=== PATIENT | female | born 1985 | race Caucasian/White ===

== ENCOUNTER 2017-01-24 07:21 | Inpatient (IN) | payer OTHER ==
[2017-01-24 07:45] VITALS: BMI 25.4
--- NOTE | 2017-01-24 08:54 | OBHP ---
Datetime: 01/24/2017 08:30 IP Adm Impression: Term, intrauterine ; No Active Labor; Intact Membranes IP Admit Plan: Admit to unit; Initiate labor induction protocol Admit Comment, IP Provider: 29 G1 P 0 IUP at 398w pt Dr Shahid with decreased FM since last night. No SROM; no VB; occ CTX PNC: dr Shahid - chart rev'd - followed for early IUGR Meds Heparin PMH: PSH denies NKA PSoH denies smoking ETOH drugs A: IUP at 39w (EDC Sep16) Oligohydramnios Rubella Non Immune PLAN: condition explained to pt and her . Their questions answered Spoke to Dr Shahid...Cerivdil ordered Pelvic Type - PN: Adequate Extremities - PN: Normal Abdomen - PN: Normal Back - PN: Normal Breast - PN: Not Done Lungs - PN: Normal Heart - PN: Normal Thyroid - PN: Normal Neurologic - PN: Normal HEENT - PN: Normal General - PN: Normal Presentation-Admit: Vertex IP Fetus A Comments: [place] NAGI 4.5cm FHR - Baseline A Provider: 120 Membranes, Provider: Intact Comments, ACOG Physical Exam: ROS Geneeral: no weakness HEENT: NO BASS; no visual dist RESP: no SOB; no Cough CV: no CP; no palpitations GI: No N/V/D : No F/U/ D MS: no joint pain Pool Provider: Negative IP Hx Assessment: The History has been Reviewed and is Current IP Chief Complaint: Decreased movement NICHD Variability Prov Fetus A: Moderate 6-25bpm NICHD Accel Fetus A IP Provider: 15X15 FHR Category Provider Fetus A: Category I NICHD Decel Fetus A IP Provider: None Genitourinary Exam: Normal DTRs - PN: Normal
[2017-01-24 09:17] LABS: BASO # 0.1 K/uL (0.0-0.2); BASO % 0.7 % (0.0-2.0); EOS # 0.1 K/uL (0.0-0.7); EOS % 1.4 % (0.0-4.0); HEMATOCRIT 39.5 % (34.0-47.0); LYMPH # 1.6 K/uL (1.0-4.3); MEAN CELL VOLUME 89.1 fl (81.0-99.0); MEAN CORPUSCULAR HEMOGLOBIN 29.5 pg (27.0-31.0); MEAN CORPUSCULAR HGB CONC 33.1 g/dL (33.0-37.0); MEAN PLATELET VOLUME 9.1 fl (7.2-11.7); MONO # 0.5 K/uL (0.0-0.8); MONO % 5.6 % (0.0-10.0); NEUT % 75.3 % (50.0-75.0); RED CELL DISTRIBUTION WIDTH 14.9 % (11.5-14.5); WHITE BLOOD COUNT 9.3 K/uL (4.8-10.8)
[2017-01-24] MEDS: Lactated Ringer's 1,000 ML IV SCH ×4 (09:39→15:25)
--- NOTE | 2017-01-24 09:40 | OBADHP ---
Datetime: 01/24/2017 08:30 IP Chief Complaint Other: IUGR Admit Comment, IP Provider: 29 G1 P 0 IUP at 398w pt Dr Shahid with decreased FM since last night. No SROM; no VB; occ CTX PNC: dr Shahid - chart rev'd - followed for early IUGR Meds Heparin PMH: PSH denies NKA PSoH denies smoking ETOH drugs A: IUP at 39w (EDC Sep16) Oligohydramnios Rubella Non Immune PLAN: condition explained to pt and her . Their questions answered Spoke to Dr Shahid...Cerivdil ordered Pelvic Type - PN: Adequate Extremities - PN: Normal Abdomen - PN: Normal Back - PN: Normal Breast - PN: Not Done Lungs - PN: Normal Heart - PN: Normal Thyroid - PN: Normal Neurologic - PN: Normal HEENT - PN: Normal General - PN: Normal Presentation-Admit: Vertex IP Fetus A Comments: [place] NAGI 4.5cm FHR - Baseline A Provider: 120 Membranes, Provider: Intact Contraction Comments Provider: irregular Comments, ACOG Physical Exam: ROS Geneeral: no weakness HEENT: NO BASS; no visual dist RESP: no SOB; no Cough CV: no CP; no palpitations GI: No N/V/D : No F/U/ D MS: no joint pain Gestation - Est Wks by US: 39+ Pool Provider: Negative IP Hx Assessment: The History has been Reviewed and is Current Vital Signs Provider: Reviewed IP Chief Complaint: Uterine contractions; Decreased movement NICHD Variability Prov Fetus A: Moderate 6-25bpm NICHD Accel Fetus A IP Provider: 15X15 FHR Category Provider Fetus A: Category I NICHD Decel Fetus A IP Provider: None Dilatation, Provider: 1cm Effacement, Provider: 50 Genitourinary Exam: Normal DTRs - PN: Normal EGA AdmitDate IP: 39.3 IP Adm Impression: Term, intrauterine ; Intact Membranes IP Admit Plan: Admit to unit; Initiate labor protocol
[2017-01-24] MEDS ORDERED: Fentanyl/Bupivacaine HCl 250 ML EPI ONE (13:39)
[2017-01-24] MEDS ORDERED: Bupivacaine HCl 0.25% PF (10 ml) Inj ONE ×2 (13:40→20:27)
[2017-01-24] MEDS ORDERED: Oxytocin 30 units/LR 500ML 30 U/500 ML BAG IV ONE (23:34)
[2017-01-24] MEDS ORDERED: Lidocaine 1% Inj (20ml) ONE (23:35)
--- NOTE | 2017-01-25 04:42 | OBDS ---
DELIVERY PERSONNEL Delivery Doctor: Lexy Shahid MD Wrapper And Preserver: Dennis Hickman RN Anesthesiologist: Helen Merchant MD MATERNAL INFORMATION Delivery Anesthesia: Local; Epidural Medications in Delivery: oxytocin Estimated Blood Loss (ml): 250 Placenta Cultured: No Maternal Complications: None Provider Comments: Delivered a living baby girl appears term cried spontaneously, vacum used x1 try for maternal exaustion 9/9; AF clear, placenta complete and intact Episiotomy repaired as above . Tolerated procedure well, no complication. Uterus contracted well Rectal done no defects LABOR SUMMARY EDC: 01/28/2017 00:00 No. Babies in Womb: 1 Attempted: No Labor Anesthesia: Epidural LABOR INFORMATION Reason for Induction: Not Applicable Onset of Labor: 01/24/2017 15:00 Complete Dilatation: 01/24/2017 23:15 Cervical Ripening Agents: Cervidil (Annotations: Cervidil 1omg intravaginally inserted by Dr Shahid ) Oxytocin: N/A Group B Beta Strep: Negative Steroids Given: None Reason Steroids Not Administered: Not Applicable MEMBRANES Membranes Rupture Method: Spontaneous Rupture of Membranes: 01/24/2017 20:40 Length of Rupture (hrs): 7.37 Amniotic Fluid Color: Clear Amniotic Fluid Amount: Moderate STAGES OF LABOR Stage 1 hrs: 8 Stage 1 min: 15 Stage 2 hrs: 4 Stage 2 min: 47 Stage 3 hrs: 0 Stage 3 min: 4 Total Time in Labor hrs: 13 Total Time in Labor min: 6 VAGINAL DELIVERY Episiotomy: Median Laceration Extension: Second Degree Laceration Type: Perineal Other Laceration: vaginal tear- repaired Laceration Repair: Yes Laceration Repair Note: episiotomy repaired with 2-0 chromic interrupted and continously without any complication. Initial Vag Sponge Count: 5 Final Vag Sponge Count: 5 Initial Vag Sharps Count: 2 Final Vag Sharps Count: 2 Sponge Count Correct: Yes Sharps Count Correct: Yes Count Comment: yes CSECTION DELIVERY Primary Indication: N/A Secondary Indication: N/A CSection Incision: N/A Uterine Closure: N/A BABY A INFORMATION Infant Delivery Date/Time: 01/25/2017 04:02 Method of Delivery: Vaginal Born in Route : No : N/A Forceps: N/A Vacuum Extraction: Successful Shoulder Dystocia : No ASSISTED DELIVERY BABY A Indication for Assisted Delivery: maternal exhaustion Catheter Prior to Procedure: Yes Vacuum Number of Pulls: 1 Vacuum Number of PopOffs: 0 Vacuum Oracle Erp Developer: Kiwi SHOULDER DYSTOCIA BABY A Infant Delivery Date/Time: 01/25/2017 04:02 PRESENTATION/POSITION BABY A Presentation: Cephalic Cephalic Presentation: Vertex Breech Presentation: N/A PLACENTA INFORMATION BABY A Placenta Delivery Time : 01/25/2017 04:06 Placenta Method of Delivery: Spontaneous Placenta Status: Delivered SCORES BABY A Heart Rate 1 min: >100 bpm Resp Effort 1 min: Good Cry Reflex Irritability 1 min: Cough or Sneeze or Pulls Away Muscle Tone 1 min: Active Motion Color 1 min: Body [place], Extremities Blue SCORE 1 MIN: 9 Heart Rate 5 min: >100 bpm Resp Effort 5 min: Good Cry Reflex Irritability 5 min: Cough or Sneeze or Pulls Away Muscle Tone 5 min: Active Motion Color 5 min: Body [place], Extremities Blue SCORE 5 MIN: 9 INFANT INFORMATION BABY A Gestational Age at Delivery: 39.4 Gestational Status: Term Infant Outcome : Liveborn Condition : Stable Infant Sex: Female IDENTIFICATION/MEDS BABY A ID Band Number: [id number] ID Band Location: Left Leg; Left Arm WEIGHT/LENGTH BABY A Infant Birthweight (gms): 3350 Infant Weight (lb): 7 Infant Weight (oz): 6 CORD INFORMATION BABY A No. Cord Vessels: 3 Nuchal Cord : N/A Cord Blood Taken: Yes Suction: Mouth; Nose
[2017-01-25] MEDS ORDERED: Oxycodone/Acetaminophen 5/325 mg Tab PO PRN ×2 (04:44→06:16)
[2017-01-25] MEDS ORDERED: Benzocaine/Menthol SPRAY TOP PRN (15:59)
[2017-01-25] MEDS ORDERED: Hydrocortisone-Pramoxine 1%-1% Foam(10 gm) TOP SCH (17:00)
[2017-01-26 06:44] LABS: HEMATOCRIT 30.6 % (34.0-47.0); MEAN CORPUSCULAR HEMOGLOBIN 29.5 pg (27.0-31.0); MEAN CORPUSCULAR HGB CONC 33.1 g/dL (33.0-37.0); RED CELL DISTRIBUTION WIDTH 14.9 % (11.5-14.5); WHITE BLOOD COUNT 13.1 K/uL (4.8-10.8)
--- NOTE | 2017-01-26 07:53 | OBPPN ---
Datetime: 01/26/2017 07:47 PP Pain Prov: Within normal limits PP Pain Prov comment: no SOB, chest pains or leg pains PP Nausea Prov: Denies PP Breasts Prov: Normal PP Lungs Prov: Normal PP Abdomen/Uterus Prov: Abnormal PP Lochia Prov: Normal PP Vulva/Perineum Prov: Abnormal PP CVA Tenderness Prov: Normal PP Extremities Prov: Normal PP C/S Incision Prov: Not Applicable PP Progress Prov: Normal PP Comments Phys Exam Prov: breast not engorged, NT; Abd soft ND fundus firm below the umb. Perine um repaired Ext no calf tenderness or edema PP Impression Prov: Normal progression PP Plan Prov: Continue present management PP Progress Note Prov: Continue PP care OOB and ambulation IP PP Procedures: None Vital Signs Provider PP: Reviewed
--- NOTE | 2017-01-27 09:40 | OBPPN ---
Datetime: 01/27/2017 09:34 PP Pain Prov: Within normal limits PP Pain Prov comment: No sob chest pains or leg pains PP Nausea Prov: Denies PP Flatus Prov: Yes PP BM Prov: Yes PP Breasts Prov: Normal PP Lungs Prov: Normal PP Abdomen/Uterus Prov: Abnormal PP Lochia Prov: Normal PP Vulva/Perineum Prov: Abnormal PP CVA Tenderness Prov: Normal PP Extremities Prov: Normal PP C/S Incision Prov: Not Applicable PP Progress Prov: Normal PP Impression Prov: Normal progression PP Plan Prov: Discharge PP Progress Note Prov: D/C home with instructions Appt to office 4-6 wks IP PP Procedures: None Vital Signs Provider PP: Reviewed
--- NOTE | 2017-01-27 09:42 | OBDCSUM ---
Datetime: 01/27/2017 09:38 Discharged to, Provider: Home Follow up at, Provider: Dr Shahid Disch Instr Activity: Bedrest; May be up to bathroom; May be up for meals; May Shower Disch Instr Diet: Regular Discharge Instructions, Provider: Routine instructions given Discharge Diagnosis, Provider: Term Delivered Discharge Time: 01/27/2017 09:39 Follow up in weeks, Provider: 4-6 wks Contraception discussed, Prov: Yes Disch Activity Restrictions: No exercising; No lifting; No driving; Minimize walking; Minimize stair -climbing; No sexual activity; Nothing in vagina - [place], tampons, douche Discharge Comment, Provider: instructjions given Continue PNC vit and iron Discharge Diagnosis Prov Other: IUGR by sono Contraception after Delivery: Undecided
[2017-01-27 13:15] VITALS: BP 102/72; PULSE 91; RESP 18; TEMP 98
[2017-01-28 00:07] VITALS: O2SAT 100
== END 2017-01-27 16:00 | disposition home or self-care (01) | DRG 775 ==
LOC: H.EROB2 07:21 → H.L&D 08:35 → H.OB/GYN 01-25 06:00
PROVIDERS: ADMIT Specialist; ATTEND Specialist
PROC: 0KQM0ZZ Repair Perineum Muscle, Open Approach (ICD-10-PCS; principal; 2017-01-24)
PROC: 10E0XZZ Delivery of Products of Conception, External Approach (ICD-10-PCS; 2017-01-24)
PROC: 4A1HXCZ Monitoring of Products of Conception, Cardiac Rate, External Approach (ICD-10-PCS; 2017-01-24)
DX: O36.5930 Maternal care for other known or suspected poor fetal growth, third trimester, not applicable or unspecified (principal); O41.03X0 Oligohydramnios, third trimester, not applicable or unspecified; Z37.0 Single live birth; O36.8130 Decreased fetal movements, third trimester, not applicable or unspecified; O70.1 Second degree perineal laceration during delivery; Z3A.39 39 weeks gestation of pregnancy